=== PATIENT | female | born 1945 | race Two or more races ===

== ENCOUNTER 2020-05-15 07:50 | Emergency (ER) | payer OTHER ==
[2020-05-15 09:17] VITALS: BP 135/69
== END 2020-05-15 10:02 | disposition home or self-care (01) ==
LOC: ED 07:50
DX: S92.322A Displaced fracture of second metatarsal bone, left foot, initial encounter for closed fracture (principal); S92.332A Displaced fracture of third metatarsal bone, left foot, initial encounter for closed fracture; S92.342A Displaced fracture of fourth metatarsal bone, left foot, initial encounter for closed fracture; I10 Essential (primary) hypertension; X50.0XXA Overexertion from strenuous movement or load, initial encounter; X50.9XXA Other and unspecified overexertion or strenuous movements or postures, initial encounter; Y93.89 Activity, other specified; Y92.89 Other specified places as the place of occurrence of the external cause; Y99.8 Other external cause status
CPT/HCPCS: 82962; Q0092